=== PATIENT | female | born 1950 | race Caucasian/White ===

== ENCOUNTER 2018-06-02 05:17 | Inpatient (IN) ==
[2018-06-02] MEDS ORDERED: Famotidine PF Inj 20 MG/2 ML Vial IV.PUSH ONE (06:13)
[2018-06-02] MEDS ORDERED: Celecoxib 200 MG Capsule PO ONE (06:13)
[2018-06-02] MEDS ORDERED: Gabapentin 300 MG Capsule PO ONE (06:13)
[2018-06-02] MEDS ORDERED: Dexamethasone Inj 20 MG/5 ML Vial IV.PUSH ONE (06:13)
[2018-06-02] MEDS ORDERED: Bupivacaine/Epi PF 0.25% Inj 20 ML, Bupivacaine Liposo PF 1.3% Inj 20 ML, Sodium Chlor ... P-ARTICULR SCH ×2 (06:15)
[2018-06-02] MEDS ORDERED: Chlorhexidine Gluconate 2% 1 Pack (2 Cloths) TOPICAL ONE (06:15)
[2018-06-02] MEDS ORDERED: Metoprolol Tartrate 25 MG Tablet PO ONE (06:15)
[2018-06-02] MEDS ORDERED: Sodium Chlor 0.9% Inj 500 ML IV.CONT ONE (06:15)
[2018-06-02] MEDS ORDERED: Chlorhexidine 4% Topical 120 APPLIC/120 ML Bottle TOPICAL SCH (06:15)
[2018-06-02] MEDS ORDERED: ceFAZolin 2 GM Premix Inj 2 GM/50 ML PIGGYBACK IV.SIG SCH (07:00)
[2018-06-02] MEDS ORDERED: TRANEXAMIC ACID IV.SIG SCH (07:00)
[2018-06-02] MEDS ORDERED: SODIUM CHLOR 0.9% IV.SIG SCH (07:00)
[2018-06-02] MEDS ORDERED: Morphine Inj 4 MG/ML Vial ONE (07:02)
[2018-06-02] MEDS ORDERED: fentaNYL Citrate Inj 250 MCG/5 ML Ampul ONE (07:03)
[2018-06-02] MEDS: Vancomycin Inj 1,000 MG in Sodium Chlor 0.9% Inj 250 ML IV.SIG SCH ×3 (07:08→19:03)
[2018-06-02] MEDS ORDERED: Lidocaine PF 1% Inj 5 ML Syringe INFILTRATN ONE (07:12)
[2018-06-02] MEDS ORDERED: Morphine Inj 4 MG/ML Vial IV.PUSH PRN (09:12)
[2018-06-02] MEDS ORDERED: Bisacodyl 10 MG Supp RECTAL PRN (09:12)
[2018-06-02] MEDS ORDERED: Promethazine 25 MG Supp RECTAL PRN (09:12)
[2018-06-02] MEDS ORDERED: Post-op Orders (for Pharmacy) OTHER STA (09:12)
[2018-06-02] MEDS ORDERED: Loratadine 10 MG Tablet PO PRN (09:14)
--- NOTE | 2018-06-02 09:19 | P.OP ---
- Preoperative Diagnosis (1) Unilateral primary osteoarthritis, left hip Date of procedure: 06/02/18 Procedure: Left total hip arthroplasty Anesthesia: GETA Surgeon: Narendra Melchor MD Shipping And Receiving Material Handler: PLAN OF ACTIVITY Weight bear as tolerated. IMPLANTS USED DePuy Corail size 12 KLA collared stem with a size [48] [place] Gription cup, [ 48/32] Altrx poly liner, and a [32 +1] Biolox ceramic head. DETAILS OF PROCEDURE: This patient has a long history of hip pain. Patient was found to have severe osteoarthritis. The patient had radiographic evidence of joint space narrowing with [id number] arthritis and osteophytes around the acetabulum as well as the femoral head. There was also some cystic changes. The patient failed conservative treatment with pain medications, anti-inflammatories, physical therapy, assistive devices including a cane, as well as therapeutic injection of the hip. Patient's hip arthritis was limiting his ability to ambulate and perform activities of daily living. The patient wished to proceed with surgery and informed consent was obtained. Operative site was marked. I discussed both posterior approach and anterior approach with the patient and decision was made for anterior approach. Patient was brought to OR and placed on OR table. IV sedation and general anesthesia was administered by anesthesiologist. Patient positioned on a Raeann table and was given IV antibiotics. Time-out procedure was performed. The hip and thigh were prepped with alcohol followed by Hibiclens. The thigh was draped in the usual sterile fashion. Clean Air Suite was used for this procedure. The procedure began with a 5-inch incision over the anterolateral thigh. Subcutaneous tissue was dissected with Bovie. The fascia over the tensa fasciae latae was incised. Care was taken to avoid injury to the lateral femoral cutaneous nerve. The tensor muscle was retracted laterally. Sartorius was retracted medially. Retractors were now placed. The reflected head of the rectus is now elevated. A capsulotomy was performed over the anterior head capsule. Sutures were placed to help retract the capsule. At this point the femoral head and neck were identified. With soft tissue protected, oscillating saw was used to make a cut through the femoral neck, the femoral head was now removed. At this point attention was turned to preparation of the acetabulum. The labrum was excised. The acetabulum was sequentially reamed up to size [48]. A [place] cup was now placed. Fluoroscopy was used to aid in identification of appropriate version. Cup was fully impacted and found to have excellent fit. Hole eliminator was now placed. The liner was now impacted into the cup. At this point the hip was externally rotated. A hook was placed around the proximal femur. The capsule was released off the lateral and medial femur. The hip was now extended and adducted. Retractors were placed around the proximal femur to allow for exposure. A box osteotome was used to remove the lateral cortex of the femoral neck. A broach was used to help lateralize the prosthesis. Canal finder was used to create a path down the canal. Next, the canal was sequentially broached up to size [12]. This was found to be an excellent fit. Calcar planer was placed. A standard head was placed, and the hip was reduced. The hip was found to have excellent stability with good range of motion. The leg lengths were measured under fluoroscopy and found to be equal compared to preoperatively. Trial broach was removed. The Corail stem was opened. Stem was fully impacted into the proximal femur in appropriate version. The femoral head was placed. The hip was again reduced. Fluoroscopy confirmed excellent alignment of prosthesis. The wound was thoroughly irrigated and capsule was closed with #1 Vicryl. The fascia over the tensor fasciae muscle was closed with #1 Vicryl, subcutaneous tissue was closed with 3-0 Vicryl and the skin was closed with tej and Dermabond skin closure. The capsule layers, muscle, and subcutaneous tissue were injected with a mixture of saline and bupivicaine. Dressings were applied. The patient was transferred to Recovery Room in stable condition.
[2018-06-02] MEDS ORDERED: Tranexamic Acid Inj 1,000 MG in Sodium Chlor 0.9% Inj 100 ML IV.SIG SCH (10:00)
[2018-06-02] MEDS ORDERED: *morphine SULFATE 4 MG/ML PERIprocedure ONLY ONE (10:02)
[2018-06-02] MEDS ORDERED: *morphine SULFATE 10 MG/ML PERIprocedure ONLY ONE (10:19)
--- NOTE | 2018-06-02 10:37 | XR ---
EXAM DATE: 06/02/2018 9:13 AM EDT AGE/SEX: 67 years / Female INDICATIONS: Post op left total hip arthroplasty. CLINICAL DATA: This is the patient's subsequent encounter. Patient reports that signs and symptoms h ave been present for 1 day and indicates a pain score of 4/10. MEDICAL/SURGICAL HISTORY: None. . Left total hip arthroplasty. COMPARISON: POI, XR PELVIS AP, 01/12/2018. . FINDINGS: Postoperative left total hip replacement. Skin tej laterally. Air in soft tissues. Normal alignme nt. CONCLUSION: Postoperative left total hip replacement. No complications identified. Electronically signed by: Joshua Olvera MD 06/02/2018 10:36 AM EDT
--- NOTE | 2018-06-02 12:56 | P.DCO ---
- Physical Therapy Physical Therapy: Gait training, Safety evaluation Hip: Total hip, Protocol: Left, Posterior hip precautions, Progress to weight bearing Left Lower Extremity Weight Bearing: Weight bearing as tolerated - Nursing Dressing changes: Daily dressing change (Beginning 06/08 unless saturated. Then daily or every other day Primapore and covered arm. Beginning 06/12 begin adding Xeroform to incision) - Certification Need for Home Health services: I have seen patient Carly Tam on 06/02/18. My clinical findings support the need for the requested home health care services because: Need for Home Health Services: Limited mobility due to disease progression Homebound Certification: I certify that my clinical findings support that this patient is homebound because: Homebound Certification: Post-op weakness
--- NOTE | 2018-06-02 13:29 | XR ---
EXAM DATE: 06/02/2018 12:00 AM EDT AGE/SEX: 67 years / Female INDICATIONS: Left total hip replacement. CLINICAL DATA: This is the patient's initial encounter. Patient reports that signs and symptoms have been present for 1 day and indicates a pain score of Nonresponsive. MEDICAL/SURGICAL HISTORY: None. None. COMPARISON: No prior exams available for comparison. FINDINGS: Left hip prosthesis in place. There is good position and alignment of the left hip prosthesis. The shyla ny structures appear to be grossly intact. CONCLUSION: Good position and alignment of the left hip prosthesis. Electronically signed by: Guilherme Spicer MD 06/02/2018 1:28 PM EDT
[2018-06-02] MEDS: ceFAZolin 2 GM Premix Inj 2 GM/100 ML BAG IV.SIG SCH ×2 (16:33→22:28)
[2018-06-02] MEDS: Calcium/Vitamin D 250/125 MG Tablet PO SCH ×2 (16:33→18:47)
[2018-06-02] MEDS: Senna/Docusate Sodium 8.6/50 MG Tablet PO SCH (20:16)
[2018-06-02] MEDS: Celecoxib 200 MG Capsule PO SCH (20:17)
[2018-06-03] MEDS: Vancomycin Inj 1,000 MG in Sodium Chlor 0.9% Inj 250 ML IV.SIG SCH (06:05)
--- NOTE | 2018-06-03 07:35 | P.PNOP ---
Subjective Interval history: POD 1 s/p left anterior AYDE doing well. has been out of bed and walked to and from bathroom. states pain controlled and doing well Physical Exam Vital signs: Vital Signs 06/02/18 09:39 06/02/18 09:45 06/02/18 10:00 Temperature 97.4 F L Pulse Rate 117 H 106 H 101 H Respiratory Rate 11 L 11 L 11 L Blood Pressure 138/66 136/61 132/65 Pulse Oximetry 97 100 100 06/02/18 10:15 06/02/18 10:30 06/02/18 10:45 Temperature Pulse Rate 104 H 99 H 97 H Respiratory Rate 20 13 17 Blood Pressure 124/61 127/66 124/61 Pulse Oximetry 100 100 100 06/02/18 11:00 06/02/18 11:15 06/02/18 12:00 Temperature 97.4 F L 97.0 F L Pulse Rate 98 H 103 H 97 H Respiratory Rate 22 20 16 Blood Pressure 125/60 130/61 118/57 L Pulse Oximetry 100 100 99 06/02/18 22:28 06/03/18 00:00 06/03/18 04:00 Temperature 98.6 F 97.9 F Pulse Rate 105 H 98 H Respiratory Rate 18 18 18 Blood Pressure 105/62 136/62 Pulse Oximetry 95 95 Intake & Output 06/02/18 06/03/18 06/03/18 18:59 06:59 18:59 Intake Total 2492.83 / 2492.83 580 / 580 Output Total 250 / 250 Balance 2242.83 / 2242.83 580 / 580 Weight 85.499 kg 90.6 kg Intake: IV 1612.83 / 1612.83 350 / 350 LR 1000 mL Inj 1,000 ML @ 30 1000 / 1000 mls/hr IV.CONT .Q24H ONE Rx#: [id number] Ofirmev Inj 1,000 mg In 100 ml 100 / 100 @ 400 mls/hr IV.SIG Q12H EVELIO Rx #:[id number] Cyklokapron Inj 1,283 MG In NS 112.83 / 112.83 Inj 100 ML @ 200 mls/hr IV.SIG ONCE EVELIO Rx#:[id number] Vancomycin Inj 1,000 MG In NS 250 / 250 250 / 250 Inj 250 ML @ 250 mls/hr IV.SIG Q12H EVELIO Rx#:[id number] Ancef 2 GM Premix Inj 2 gm In 100 / 100 100 / 100 100 ml @ 200 mls/hr IV.SIG Q8H EVELIO Rx#:[id number] Ancef 2 GM Premix Inj 2 gm In 50 / 50 50 ml @ 100 mls/hr IV.SIG SQL REPORT DEVELOPER EVELIO Rx#:[id number] Oral 480 / 480 230 / 230 Anesthesia Amount 400 / 400 Output: Estimated Blood Loss 250 / 250 Other: # Voids 2 2 Date of Last Bowel Movement 06/01/18 06/02/18 Narrative: LLE: dressing clean and dry. intact. NVI Results - Labs CBC & Chem 7: 06/03/18 06:51 - Imaging Impressions Hip X-Ray 06/02/18 00:00 CONCLUSION: Good position and alignment of the left hip prosthesis. Hip X-Ray 06/02/18 09:13 CONCLUSION: Postoperative left total hip replacement. No complications identified. Assessment and Plan - Problem List (1) Status post left hip replacement Code(s): Z96.642 - Presence of left artificial hip joint Status: Acute - Assessment and Plan 1) Left Anterior AYDE - POD 1 -WBAT -maintain dressing til POD 6 then begin daily dressing changes with primapore. begin adding xeroforom POD 10 -plan for home with [facility]. if doing well this afternoon, ok for DC home. if struggling with therapy, ok to stay another night -DVT prophylaxis with Aspirin 81mg BID -f/u with Faye or PA in 2 weeks [facility] Prescription Drug Monitoring Database has been queried and verified prior to prescribing the controlled substance. Acute pain exception. This patient has normal, predicted, physiological, and time limited response to an adverse mechanical stimulus associated with surgery, trauma, or acute illness as described in my notes. There is a lack of alternative treatment options other than to include the prescribed narcotic treatment for this condition.
[2018-06-03 07:37] LABS: Hematocrit 29.9 % (35.0-46.0); Hemoglobin 10.4 gm/dL (11.6-15.3)
[2018-06-03] MEDS: Senna/Docusate Sodium 8.6/50 MG Tablet PO SCH ×2 (08:01→20:30)
[2018-06-03] MEDS: Calcium/Vitamin D 250/125 MG Tablet PO SCH ×3 (08:02→17:34)
[2018-06-03] MEDS: Celecoxib 200 MG Capsule PO SCH ×2 (08:02→20:30)
[2018-06-03] MEDS: ceFAZolin 2 GM Premix Inj 2 GM/100 ML BAG IV.SIG SCH (10:42)
[2018-06-04 03:20] VITALS: RESP 18
--- NOTE | 2018-06-04 06:37 | P.PNOP ---
Subjective Interval history: POD 2 s/p left anterior AYDE doing well. out of bed and walking yesterday. states feels ready to go home today Physical Exam Vital signs: Vital Signs 06/03/18 08:00 06/03/18 11:47 06/03/18 16:00 Temperature 99.3 F 98.4 F 97.7 F Pulse Rate 87 109 H 110 H Respiratory Rate 17 18 18 Blood Pressure 117/60 103/64 110/51 L Pulse Oximetry 97 98 97 06/03/18 20:00 06/03/18 21:00 06/03/18 22:30 Temperature 98.1 F Pulse Rate 107 H Respiratory Rate 18 18 17 Blood Pressure 118/58 L Pulse Oximetry 97 06/04/18 00:00 06/04/18 01:18 06/04/18 04:00 Temperature 98.4 F 98.4 F Pulse Rate 104 H 97 H Respiratory Rate 17 18 18 Blood Pressure 106/51 L 117/64 Pulse Oximetry 98 96 Intake & Output 06/03/18 06/03/18 06/04/18 06:59 18:59 06:59 Intake Total 1930 / 1930 1550 / 1550 Balance 1930 / 1930 1550 / 1550 Weight 90.6 kg 88.7 kg Intake: IV 1700 / 1700 450 / 450 LR 1000 mL Inj 1,000 ML @ 80 1000 / 1000 mls/hr IV.CONT .[id number] EVELIO Rx# :[id number] Ofirmev Inj 1,000 mg In 100 ml 100 / 100 100 / 100 @ 400 mls/hr IV.SIG Q12H EVELIO Rx #:[id number] Vancomycin Inj 1,000 MG In NS 500 / 500 250 / 250 Inj 250 ML @ 250 mls/hr IV.SIG Q12H EVELIO Rx#:[id number] Ancef 2 GM Premix Inj 2 gm In 100 / 100 100 / 100 100 ml @ 200 mls/hr IV.SIG Q8H EVELIO Rx#:[id number] Oral 230 / 230 1100 / 1100 Other: # Voids 2 4 4 Date of Last Bowel Movement 06/02/18 06/02/18 Narrative: LLE: dressings clean and dry. intact. NVI. neg tori Results - Labs CBC & Chem 7: 06/03/18 06:51 Laboratory Results - last 24 hr 06/03/18 06:51 Hgb 10.4 L Hct 29.9 L Assessment and Plan - Problem List (1) Status post left hip replacement Code(s): Z96.642 - Presence of left artificial hip joint Status: Acute - Assessment and Plan 1) Left Anterior AYDE - POD 2 -WBAT -maintain dressing til POD 6 then begin daily dressing changes with primapore. begin adding xeroforom POD 10 -plan for home with [facility] today -DVT prophylaxis with Aspirin 81mg BID -f/u with Faye or PA in 2 weeks [employer] Prescription Drug Monitoring Database has been queried and verified prior to prescribing the controlled substance. Acute pain exception. This patient has normal, predicted, physiological, and time limited response to an adverse mechanical stimulus associated with surgery, trauma, or acute illness as described in my notes. There is a lack of alternative treatment options other than to include the prescribed narcotic treatment for this condition.
--- NOTE | 2018-06-04 06:39 | P.DS ---
Date of admission: 06/02/18 05:17 Primary care physician: Yarelis Vasquez MD Attending physician on discharge: Narendra Faye Anticipated date of discharge: 06/04/18 Brief History from admission: Patient admitted for elective left total hip arthroplasty. Patient has had issues with left hip osteoarthritis for some time now. She is failed conservative treatment which included activity modification, anti-inflammatory therapy, and steroid injections. The decision was made to move forward with elective left total hip arthroplasty. DS: Diagnosis - Discharge Diagnosis (1) Status post left hip replacement Status: Acute DS: Medications - Discharge Medications Prescriptions: aspirin [Mely Chewable Aspirin] 81 mg PO BID #60 tab hydrocodone-acetaminophen [Lewis] 1 tab PO Q4H PRN #42 tab PRN Reason: Acute Pain DS: Summary Hospital Course: Patient tolerated procedure well was admitted to [facility]. She was out of bed on postop day 0 with therapy working on ambulation. Her pain is well controlled on postop day 1. She was not quite strong enough for ambulating well enough to be discharged home on postop day 1. However, on postop day 2, she was ambulating well, her pain is well controlled, she was hemodynamically stable and fit for discharge home with home health care. She will continue to fully weightbearing the left leg. She will maintain her dressing on the left hip for 6 days and then begin daily dressing changes with Xeroform and Primapore. She will follow-up in the office with Dr. Faye or his PA in 2 weeks. She will have aspirin 81 mg twice daily for DVT prophylaxis. - Time Spent with Patient Total time spent providing and/or coordinating discharge services: Less than 30 minutes - Quality: VTE Deep Vein Thrombosis/Pulmonary Embolism Present on Admission: No Exam Vital signs: Vital Signs 06/03/18 08:00 06/03/18 11:47 06/03/18 16:00 Temperature 99.3 F 98.4 F 97.7 F Pulse Rate 87 109 H 110 H Respiratory Rate 17 18 18 Blood Pressure 117/60 103/64 110/51 L Pulse Oximetry 97 98 97 06/03/18 20:00 06/03/18 21:00 06/03/18 22:30 Temperature 98.1 F Pulse Rate 107 H Respiratory Rate 18 18 17 Blood Pressure 118/58 L Pulse Oximetry 97 06/04/18 00:00 06/04/18 01:18 06/04/18 04:00 Temperature 98.4 F 98.4 F Pulse Rate 104 H 97 H Respiratory Rate 17 18 18 Blood Pressure 106/51 L 117/64 Pulse Oximetry 98 96 Intake & Output 06/03/18 06/03/18 06/04/18 06:59 18:59 06:59 Intake Total 1929 / 1929 1550 / 1550 Balance 1929 1550 / 1550 Weight 90.6 kg 88.7 kg Intake: IV 1700 / 1700 450 / 450 LR 1000 mL Inj 1,000 ML @ 80 1000 / 1000 mls/hr IV.CONT .[id number] EVELIO Rx# :[id number] Ofirmev Inj 1,000 mg In 100 ml 100 / 100 100 / 100 @ 400 mls/hr IV.SIG Q12H EVELIO Rx #:[id number] Vancomycin Inj 1,000 MG In NS 500 / 500 250 / 250 Inj 250 ML @ 250 mls/hr IV.SIG Q12H EVELIO Rx#:[id number] Ancef 2 GM Premix Inj 2 gm In 100 / 100 100 / 100 100 ml @ 200 mls/hr IV.SIG Q8H EVELIO Rx#:[id number] Oral 230 / 230 1100 / 1100 Other: # Voids 2 4 4 Date of Last Bowel Movement 06/02/18 06/02/18 Narrative: LLE: dressings clean and dry. intact. NVI. Results Procedures completed during hospitalization: Left anterior total hip arthroplasty Labs on day of discharge: Labs from last 24 hours 06/03/18 06:51 Hgb 10.4 L Hct 29.9 L - Impressions ITS Impressions Hip X-Ray 06/02/18 09:13 CONCLUSION: Postoperative left total hip replacement. No complications identified. Discharge Plan - Discharge Disposition Patient Disposition: Disch W/Home Health Service - Discharge Condition Condition: Good - Discharge Order Discharge Orders: Discharge Order (Routine); Ordered 06/03/18 Ordered By: Rm Barger - Physicians Team Primary Care Provider: Yarelis Vasquez Attending Provider: Narendra Faye Other Providers: [facility], ; [facility] - Rxs /Orders / Referrals /Forms Prescriptions: New aspirin [Mely Chewable Aspirin] 81 mg Tablet,Chewable 81 mg PO BID Qty: 60 RF: 0 hydrocodone-acetaminophen [Lewis] 10-325 mg Tablet 1 tab PO Q4H PRN (Reason: Acute Pain) Qty: 42 RF: 0 Continue levothyroxine 25 mcg Tablet 25 mcg PO DAILY loratadine [Claritin] 10 mg Tablet 1 tab PO DAILY PRN (Reason: Allergy Symptoms) [id number] K [Adults Multivitamin] 18 mg iron-400 mcg-25 mcg Tablet 1 tab PO DAILY Discontinued tramadol 50 mg Tablet 50 mg PO TID PRN (Reason: Pain) Ambulatory Orders / Order Sets / DME: Walker Folding (Routine) Location: Determined by Patient Ordered By: Rm Barger Referrals: Yarelis Vasquez MD [Primary Care Provider] - See Instructions Narendra Faye MD [Physician] - See Instructions (2 weeks) - Discharge Instructions Patient Printed Instructions: How to Choose and Use a Walker (GEN), Pain Management After Surgery (DC), Precautions after Total Joint Replacement Surgery (DC), Total Hip Replacement (DC) Additional Instructions: REGULAR DIET TOLERATED WEIGHT BEARING TOLERATED DO NOT CHANGE DRESSING KEEP DRESSING CLEAN, DRY, AND INTACT TAKE MEDICATION PRESCRIBED FOLLOW UP WITH MD INSTRUCTED - Post Discharge Care Plan Care Plan Goals: Discharge Care Plan Goals for Total Hip Replacement You had a hip replacement surgery. This means your natural hip was replaced with an artificial joint (prosthesis). You may be recovering at home or in a rehabilitation facility. Either way, you must take care of your new hip. Here are some goals to help you heal well. Directions to Meet your Goals: 1. Activity & Exercises: * Take pain medicine as directed by your doctor. * Dont drive until your doctor says its OK. And never drive while taking opioid pain medicine. * Wear the support stockings you were given in the hospital as directed by your surgeon. * Dont sit for more than 30 to 45 minutes at one time. * Dont lean forward while sitting. * Dont cross your legs. * Keep your feet flat on the floor. Dont turn your foot or leg inward. This stresses your hip joint. * Use an elevated toilet seat for 6 weeks after surgery. * Nap if you are tired, but dont stay in bed all day. * Sit on a firm cushion when you ride in a car and avoid sitting too low. Try not to bend your hip too much when getting in and out of the car. 2. Prevent Falls/Injury: * Follow your doctors orders regarding how much weight to put on the affected leg. * Dont bend at the hip when you bend over. Don't bend at the waist to put on socks and shoes. And avoid picking up items from the floor. * Use a cane, crutches, a walker, or handrails until your balance, flexibility, and strength improve. And remember to ask for help from others when you need it. * Free up your hands so that you can use them to keep balance. Use a julienne pack , apron, or pockets to carry things. * Arrange your household to keep the items you need handy. Keep everything else out of the way. * Remove items that may cause you to fall, such as throw rugs and electrical cords. * Use nonslip bath mats, grab bars, an elevated toilet seat, and a shower chair in your bathroom * Sit on a shower stool or chair when you shower to keep from falling. 3. Precautions: * Prevent infection. Any infection will need to be treated immediately. Call your doctor right away if you think you might have an infection. * Tell your dentist that you have an artificial joint and take antibiotics as prescribed before any dental work. * Tell all your healthcare providers about your artificial joint before any medical procedure. * Maintain a healthy weight. Get help to lose any extra pounds. Added body weight puts stress on the joints. 4. Incision Care: * Prevent infection by washing your hands often. If an infection occurs, it will need to be treated right away. * Call your doctor right away if you think you may have an infection. Symptoms include a fever or an incision that leaks white, green, or yellow fluid. * Don't soak your incision in water until your doctor says its OK. This means no hot tubs, bathtubs, or swimming pools. * Follow your doctor's instructions for changing the dressing. * Dont rub the incision, or apply creams or lotions to it. * If you notice any redness or drainage around the bandage site, contact your surgeon's office immediately. 5. Follow-Up: Do Not miss your follow-up appointment. Keep up with all your appointments and yearly check ups When to call your doctor: Call your doctor right away if you have: Hip pain gets worse Pain or swelling in your calf or leg not related to your incision Tenderness or redness in your calf Fever of 100.4F (38C) or higher, or as directed by your healthcare provider Shaking chills Swelling or redness at the incision site gets worse Fluid draining from the incision Call 911: Call 911 right away if you have: Chest pain Shortness of breath Any pain or tenderness in your calf
[2018-06-04 08:24] VITALS: BP 121/60; PULSE 98; TEMP 98.9; O2SAT 97
[2018-06-04] MEDS: Celecoxib 200 MG Capsule PO SCH (08:49)
[2018-06-04] MEDS: Calcium/Vitamin D 250/125 MG Tablet PO SCH (08:49)
[2018-06-04] MEDS: Senna/Docusate Sodium 8.6/50 MG Tablet PO SCH (08:49)
== END 2018-06-04 11:17 | disposition home health service (06) ==
LOC: HSDI 05:17 → N06 11:36
PROVIDERS: ADMIT Orthopaedic Surgery Orthopaedic Trauma; ATTEND Orthopaedic Surgery Orthopaedic Trauma
DX: M16.12 Unilateral primary osteoarthritis, left hip